=== PATIENT | female | born 1990 | race African-American/Black ===

== ENCOUNTER 2017-06-15 18:54 | Emergency (ER) | payer OTHER ==
[2017-06-15] MEDS ORDERED: DIPHTH,PERTUSS(ACELL),TET 0.5 ML DISP.SYRIN IM ONE (19:22)
[2017-06-15 19:29] VITALS: BP 111/61; PULSE 71; TEMP 98.4; BMI 30.4
--- NOTE | 2017-06-15 19:49 | PDOC ---
History of Present Illness - General Chief Complaint: Laceration Stated Complaint: LACERATION Time Seen by Provider: 06/15/17 19:21 - History of Present Illness Initial Comments: 06/15/17 19:39 CHIEF COMPLAINT: laceration HISTORY OF PRESENT ILLNESS: 26 yo F currently , otherwise healthy, presents to [facility] with laceration to left hand to skin between thumb and index finger. Patient states she is UTD with tetanus shot from her recent . She reports that she was opening a package in the kitchen with a knife when the knife slipped "and I stabbed myself." Patient denies any fever, chills, nausea, vomiting. No recent travel or sick contacts. PAST MEDICAL HISTORY: Denies past medical history FAMILY HISTORY: Denies SOCIAL HISTORY: Denies tobacco, alcohol, illicit drug use. SURGICAL HISTORY: Denies ALLERGIES: No known drug allergies REVIEW OF SYSTEMS General/Constitutional: Denies fever or chills. Denies weakness. Gastrointestinal: Denies nausea, vomiting, diarrhea. Musculoskeletal: Denies joint or muscle swelling or pain. Denies neck or back pain. Skin: Laceration to left hand. PHYSICAL EXAM General Appearance: Well-appearing, appropriately dressed. No apparent distress. HEENT: EOMI, PERRLA. No photophobia, scleral icterus. Respiratory/Chest: Lungs CTAB. Cardiovascular: RRR. S1, S2. Musculoskeletal/Extremities: Normal inspection. FROM of all extremities, normal capillary refill. Pelvis Stable. No CVA tenderness. No tenderness to extremities, pedal edema, swelling, erythema or deformity. Integumentary: Superficial laceration to left hand approximately 0.5cm in length to skin between thumb and index finger. NO active bleeding. Appropriate color, dry, warm. No cyanosis, erythema, jaundice or rash Neurologic: costume maker II-XII intact. Fully oriented, alert. Appropriate mood/affect. Motor strength 5/5. No appreciable EOM palsy, facial droop or sensory deficit. Past History - Past Medical History Allergies/Adverse Reactions: Allergies Allergy/AdvReac Type Severity Reaction Status Date / Time No Known Allergies Allergy Verified 06/15/17 19:17 Home Medications: Ambulatory Orders NK [No Known Home Medication] 06/15/17 - Suicide/Smoking/Psychosocial Hx Smoking History: Never smoked Information on smoking cessation initiated: No Hx Alcohol Use: No Drug/Substance Use Hx: No *Physical Exam - Vital Signs Last Vital Signs Temp Pulse Resp BP Pulse Ox 98.4 F 71 18 111/61 99 06/15/17 19:17 06/15/17 19:17 06/15/17 19:17 06/15/17 19:17 06/15/17 19:17 Medical Decision Making - Medical Decision Making 06/15/17 19:48 26 yo F currently , otherwise healthy, presents to [facility] with laceration to left hand to skin between thumb and index finger. irrigated lac with high pressure NS, cleansed with betadine. No active bleeding , superficial laceration repair with dermabond. patient UTD with tetanus. Advised patient of post lac repair instructions. Advised patient of signs and symptoms for return to ED. Patient verbalized understanding and agrees to plan. *DC/Admit/Observation/Transfer Diagnosis at time of Disposition: Laceration - Discharge Dispostion Disposition: HOME Condition at time of disposition: Stable Admit: No - Referrals - Patient Instructions Printed Discharge Instructions: DI for Laceration Repair With Dermabond Additional Instructions: Please keep area of laceration repair dry for the next few hours. Afterwards you may wash gently with mild soap and water. Avoid excessive use of the affected hand/fingers. If you develop any redness, swelling, warmth, or increased pain to the site of the wound, or you develop fever, chills, nausea, vomiting, or diarrhea, please return to the ER. - Post Discharge Activity
== END 2017-06-15 19:57 | disposition home or self-care (01) ==
LOC: JERFT 18:54
PROC: 0HQGXZZ Repair Left Hand Skin, External Approach (ICD-10-PCS; principal; 2017-06-15)
PROC: 3E0234Z Introduction of Serum, Toxoid and Vaccine into Muscle, Percutaneous Approach (ICD-10-PCS; 2017-06-15)
DX: S61.412A Laceration without foreign body of left hand, initial encounter (principal); W26.0XXA Contact with knife, initial encounter; Y93.G1 Activity, food preparation and clean up; Y92.030 Kitchen in apartment as the place of occurrence of the external cause; Y99.8 Other external cause status
CPT/HCPCS: 12001; 90471; 99281-25

== ENCOUNTER 2018-10-12 08:54 | Emergency (ER) | payer OTHER ==
[2018-10-12 09:00] VITALS: BP 114/67; PULSE 80; TEMP 98.3; BMI 27.2
--- NOTE | 2018-10-12 09:23 | PDOC ---
History of Present Illness - General Chief Complaint: Pain Stated Complaint: ABDOMINAL PAIN Time Seen by Provider: 10/12/18 09:16 History Source: Patient Exam Limitations: No Limitations Past History - Travel Traveled outside of the country in the last 30 days: No Close contact w/someone who was outside of country & ill: No - Past Medical History Allergies/Adverse Reactions: Allergies Allergy/AdvReac Type Severity Reaction Status Date / Time No Known Allergies Allergy Verified 10/12/18 08:57 Home Medications: Ambulatory Orders Ibuprofen 600 mg PO Q6H #30 tablet 10/12/18 Sulfamethoxazole/Trimethoprim [Bactrim Ds -] 1 tab PO BID #14 tablet 10/12/18 COPD: No - Immunization History Immunization Up to Date: Yes - Suicide/Smoking/Psychosocial Hx Smoking History: Never smoked Information on smoking cessation initiated: No Hx Alcohol Use: No Drug/Substance Use Hx: No Review of Systems - Review of Systems Able to Perform ROS?: Yes Comments:: 10/12/18 09:23 CONSTITUTIONAL: Absent: fever, chills, diaphoresis, generalized weakness, malaise, loss of appetite GASTROINTESTINAL: Present: abdominal pain Absent: abdominal distension, nausea, vomiting, diarrhea , constipation, melena, hematochezia GENITOURINARY: Absent: dysuria, frequency, urgency, hesitancy, hematuria, flank pain, genital pain MUSCULOSKELETAL: Absent: myalgia, arthralgia, joint swelling SKIN: Absent: rash, itching, pallor NEUROLOGIC: Absent: headache, focal weakness or paresthesias, dizziness, unsteady gait, seizure, mental status changes, bladder or bowel incontinence PSYCHIATRIC: Absent: anxiety, depression, suicidal or homicidal ideation, hallucinations. Is the patient limited Ghanaian proficient: No *Physical Exam - Vital Signs Last Vital Signs Temp Pulse Resp BP Pulse Ox 98.3 F 80 17 114/67 99 10/12/18 08:58 10/12/18 08:58 10/12/18 08:58 10/12/18 08:58 10/12/18 08:58 - Physical Exam Comments: 10/12/18 09:23 GENERAL: Well developed, well nourished. Awake and alert. No acute distress. HEENT: Normocephalic, atraumatic. PERRLA, EOMI. No conjunctival pallor. Sclera are non- icteric. Moist mucous membranes. Oropharynx is clear. ABDOMINAL: Soft. Non-tender. Non-distended. No rebound or guarding. No organomegaly. Normoactive bowel sounds. MUSCULOSKELETAL Normal range of motion at all joints. No bony deformities or tenderness. No CVA tenderness. EXTREMITIES: No cyanosis. No clubbing. No edema. No calf tenderness. SKIN: Warm and dry. Normal capillary refill. No rashes. No jaundice. NEUROLOGICAL: Alert, awake, appropriate. Cranial nerves 2-12 intact. No deficits to light touch and temperature in face, upper extremities and lower extremities. No motor deficits in the in face, upper extremities and lower extremities. Normoreflexic in the upper and lower extremities. Normal speech. Toes are down- going bilaterally. Gait is normal without ataxia. Medical Decision Making - Medical Decision Making 10/12/18 09:46 The patient is a 28-year-old female with no past medical history, who presents to the ER for evaluation of abdominal pain for 1 month. Patient states that before her pain started she took a Plan B pill. She states after that she has had lower abdominal pain. She was seen at urgent care approximately 2 weeks ago and diagnosed with a UTI for which she was given a course of antibiotics. She states that that only minimally helps the pain. States that she is having normal bowel movements. Last menstrual cycle was approximately 1 month ago, patient states she is of regular and should be getting her menstrual cycle in 1 week. She is sexually active with one partner. Denies fevers, chills, chest pain, shortness of breath, nausea, vomiting, diarrhea, constipation, frequency, urgency and hematuria. A/P: Lower abdominal pain. On exam abdomen is soft and nontender with no rebound guarding or tenderness. No CVA tenderness. Patient states that she has the pain despite palpation and palpation does not make it worse. We will obtain a new urine sample, and GC chlamydia. TVUS ordered Reevaluate 10/12/18 11:03 Urine with trace leukocytes, blood. 23 WBC's Will treat for UTI. Keflex given last month, will give bactrim today TVUS with no ovarian cysts, torsion. Thickened Endometrium consistent with menstrual cycle pattern Will dc home with PCP follow up I discussed the physical exam findings, ancillary test results and final diagnoses with the patient. I answered all of the patient's questions. The patient was satisfied with the care received and felt comfortable with the discharge plan and treatment plan. The Patient agrees to follow up with the primary care physician/specialist within 24-72 hours. Return precautions were given. *DC/Admit/Observation/Transfer Diagnosis at time of Disposition: UTI (urinary tract infection) Qualifiers: Urinary tract infection type: acute cystitis Hematuria presence: with hematuria Qualified Code(s): N30.01 - Acute cystitis with hematuria - Discharge Dispostion Disposition: HOME Condition at time of disposition: Stable Decision to Admit order: No - Referrals Referrals: Jimmy Lundy MD [Staff Physician] - - Patient Instructions Printed Discharge Instructions: DI for Urinary Tract Infection (UTI) Additional Instructions: You have a urinary tract infection. This caused by bacteria. Your ultrasound was normal today. Please drink plenty of fluids. Take your antibiotics as prescribed. Finish the entire dose even if you feel better. You may take Tylenol or Motrin as needed for pain. Follow the dosing instructions on the bottle Please follow up with your primary care doctor this week. Return to the emergency department if you have fevers, chills, nausea, vomiting , back pain, or have any changes in your symptoms. - Post Discharge Activity Forms/Work/School Notes: Back to Work
[2018-10-12 10:12] LABS: HCG,QUALITATIVE URINE Negative
[2018-10-12 10:14] LABS: EPI CELLS 2.2 /HPF (0-5/HPF); URINE APPEARANCE CLEAR; URINE BACTERIA 21.3 /hpf (NEGATIVE); URINE BILIRUBIN NEGATIVE (NEGATIVE); URINE CASTS 6 /lpf (0-8); URINE COLOR YELLOW; URINE GLUCOSE (UA) NEGATIVE (NEGATIVE); URINE KETONE TRACE (NEGATIVE); URINE LEUK ESTERASE TRACE (NEGATIVE); URINE NITRITE NEGATIVE (NEGATIVE); URINE PROTEIN NEGATIVE (NEGATIVE); URINE RBC 5 /hpf (0-4); URINE UROBILINOGEN 0.2 mg/dL (0.2-1.0); URINE WBC 7 /hpf (0-5)
[2018-10-12] MEDS ORDERED: IBUPROFEN 600 MG TABLET (FP) PO ONE ×2 (11:03→11:06)
== END 2018-10-12 11:09 | disposition home or self-care (01) ==
LOC: JERFT 08:54
DX: N30.01 Acute cystitis with hematuria (principal)
CPT/HCPCS: 36415; 76830-TC; 81003; 84703; 87491; 87591; 99281-25

== ENCOUNTER 2018-12-04 07:31 | Emergency (ER) | payer OTHER ==
[2018-12-04 07:38] VITALS: BP 100/66; PULSE 82; TEMP 98.4; BMI 26.6
--- NOTE | 2018-12-04 08:20 | PDOC ---
History of Present Illness - General Chief Complaint: Eye Problem Stated Complaint: LEFT EYE SWELLING AND REDNESS Time Seen by Provider: 12/04/18 08:05 History Source: Patient Exam Limitations: No Limitations Past History - Past Medical History Allergies/Adverse Reactions: Allergies Allergy/AdvReac Type Severity Reaction Status Date / Time No Known Allergies Allergy Verified 12/04/18 07:36 Home Medications: Ambulatory Orders Amoxicillin/Potassium Clav [Augmentin 875-125 Tablet] 1 each PO BID #14 tablet 12/04/18 COPD: No - Immunization History Immunization Up to Date: Yes - Suicide/Smoking/Psychosocial Hx Smoking History: Never smoked Information on smoking cessation initiated: No Hx Alcohol Use: No Drug/Substance Use Hx: No *Physical Exam - Vital Signs Last Vital Signs Temp Pulse Resp BP Pulse Ox 98.4 F 82 16 100/66 99 12/04/18 07:36 12/04/18 07:36 12/04/18 07:36 12/04/18 07:36 12/04/18 07:36 - Physical Exam General Appearance: No: Apparent Distress HEENT: positive: EOMI, FLOWER, Other (+L eye injection, +L eyelid swelling, no pain on eye movement, no chemosis, no double vision, slight greenish d/c eye) Integumentary: positive: Normal Color Neurologic: positive: Alert, Normal Mood/Affect Medical Decision Making - Medical Decision Making 28 y/o F with no sig pmh presents with L eyelid swelling from today. Mentions 2 days ago, she noted, she awoke with crusting of L eyelid and redness of eye. Today, she noted swelling of eyelid. Denies fever, pain on eye movement, eye itching, changes to vision, FB sensation, photophobia. Patient does not wear contacts or glasses Concern for possible developing periorbital cellulitis; no current suspicion for orbital cellulitis based on exam 12/04/18 08:17 *DC/Admit/Observation/Transfer Diagnosis at time of Disposition: Periorbital cellulitis of left eye - Discharge Dispostion Disposition: HOME Condition at time of disposition: Stable Decision to Admit order: No - Prescriptions Prescriptions: Amoxicillin/Potassium Clav [Augmentin 875-125 Tablet] 1 each PO BID #14 tablet - Referrals Referrals: Koffi Moise MD [Staff Physician] - Call tomorrow - Patient Instructions Additional Instructions: Thank you for choosing [facility]. It was a pleasure taking care of you. There is concern for possible developing infection around your eye Please take antibiotics as prescribed Avoid makeup in the left eye Wash hands Follow-up with rn allergy in 2 days Return to the Emergency Department if your symptoms worsen or persist, have changes to vision, unable to see, pain on eye movement, double vision or other concerning symptoms. - Post Discharge Activity
== END 2018-12-04 08:23 | disposition home or self-care (01) ==
LOC: JERFT 07:31 → JER 07:31 → JERFT 08:23
DX: L03.213 Periorbital cellulitis (principal)
CPT/HCPCS: 99282-25